=== PATIENT | male | born 1990 | race African-American/Black ===

== ENCOUNTER 2017-12-20 20:41 | Emergency (ER) | payer SELFPAY ==
[2017-12-20 20:53] VITALS: BP 127/92; PULSE 122; TEMP 99.1; BMI 30.4
--- NOTE | 2017-12-20 21:04 | PDOC ---
Rapid Medical Evaluation Chief Complaint: HIV Testing Time Seen by Provider: 12/20/17 21:01 Medical Evaluation: Allergies Allergy/AdvReac Type Severity Reaction Status Date / Time No Known Allergies Allergy Verified 12/20/17 20:53 Vital Signs Temp Pulse Resp BP Pulse Ox 99.1 F 122 H 18 127/92 97 12/20/17 20:47 12/20/17 20:47 12/20/17 20:47 12/20/17 20:47 12/20/17 20:47 12/20/17 21:02 Pt c/o: needs to be treated for chlamydia after being told his female sexual partner was + roseline and was treated here at [facility]. The pt has no complaints Pt on brief exam: no penile drainage, tachy Pt ordered for: gc and ekg Pt to proceed to the ED Discharge Disposition - Diagnosis Chlamydia contact - Referrals - Patient Instructions - Post Discharge Activity
[2017-12-20] MEDS ORDERED: AZITHROMYCIN 1 GM PACKET PO ONE (21:38)
--- NOTE | 2017-12-20 21:45 | PDOC ---
History of Present Illness - General Chief Complaint: HIV Testing Stated Complaint: POSSIBLE STD Time Seen by Provider: 12/20/17 21:01 History Source: Patient Exam Limitations: No Limitations - History of Present Illness Initial Comments: 12/20/17 21:40 27 y/o male here for treatment and testing for chlamydia. The patient was told today by his girlfriend that she was + for the same and treated here at [facility]. The patient has no complaints Timing/Duration: unsure Associated Symptoms: reports: denies symptoms Past History - Travel Traveled outside of the country in the last 30 days: No - Past Medical History Allergies/Adverse Reactions: Allergies Allergy/AdvReac Type Severity Reaction Status Date / Time No Known Allergies Allergy Verified 12/20/17 20:53 Home Medications: Ambulatory Orders NK [No Known Home Medication] 12/20/17 COPD: No - Suicide/Smoking/Psychosocial Hx Smoking History: Never smoked Patient Lives Alone: No Lives with/in: parents Review of Systems - Review of Systems Able to Perform ROS?: No Constitutional: No: Symptoms Reported HEENTM: No: Symptoms Reported Respiratory: No: Symptoms reported Cardiac (ROS): No: Symptoms Reported ABD/GI: No: Symptoms Reported : No: Symptoms Reported Musculoskeletal: No: Symptoms Reported Integumentary: No: Symptoms Reported Neurological: No: Symptoms reported *Physical Exam - Vital Signs Last Vital Signs Temp Pulse Resp BP Pulse Ox 99.1 F 122 H 18 127/92 97 12/20/17 20:47 12/20/17 20:47 12/20/17 20:47 12/20/17 20:47 12/20/17 20:47 - Physical Exam General Appearance: Yes: Nourished, Appropriately Dressed. No: Apparent Distress HEENT: positive: Pharynx Normal Neck: positive: Supple. negative: Lymphadenopathy (R), Lymphadenopathy (L) Gastrointestinal/Abdominal: positive: Soft. negative: Distended, Tenderness Male Genitalia: positive: normal genitalia. negative: discharge, testicular tenderness Extremity: positive: Normal Capillary Refill Integumentary: positive: Normal Color, Warm, Moist Neurologic: positive: Motor Strength 5/5 (ambulatory) Heart Score/ECG Review - ECG Intrepretation Rhythm: Regular Rhythm (sinus tachy at 110. no st elevation or depression) Medical Decision Making - Medical Decision Making 12/20/17 21:43 pt here for tx for chlamydia. pt was found to be tachycardic upon arrival to Ed. The patient states just ran up the hill and denies palpiations, drug use, or cardiac hx. Urine ordered and will treat with azithromycin *DC/Admit/Observation/Transfer Diagnosis at time of Disposition: Chlamydia contact - Discharge Dispostion Disposition: HOME Condition at time of disposition: Good - Referrals - Patient Instructions Printed Discharge Instructions: Chlamydia Additional Instructions: Please avoid sexual intercourse x 1 week. Please retest in about 4-6 weeks. Return if you develop any symptoms - Post Discharge Activity
[2017-12-20] MEDS ORDERED: AZITHROMYCIN 500 MG TABLET ONE (21:51)
--- NOTE | 2017-12-22 10:01 | EKG ---
Test Reason : Blood Pressure : / mmHG Vent. Rate : 110 BPM Atrial Rate : 110 BPM P-R Int : 124 ms QRS Dur : 084 ms QT Int : 312 ms P-R-T Axes : 072 068 021 degrees QTc Int : 422 ms SINUS TACHYCARDIA NONSPECIFIC ST ABNORMALITY NO PREVIOUS ECGS AVAILABLE Confirmed by JOBY LOVELL MD ([id number]) on 12/22/2017 10:00:53 AM Referred By: Confirmed By:JOBY LOVELL MD
== END 2017-12-20 21:50 | disposition home or self-care (01) ==
LOC: JERFT 20:41
DX: Z11.3 Encounter for screening for infections with a predominantly sexual mode of transmission (principal)
CPT/HCPCS: 36415; 87491; 87591; 93005; 93010; 99281-25